=== PATIENT | male | born 1995 | race Caucasian/White ===

== ENCOUNTER 2023-10-25 01:50 | Emergency (ER) | payer SELFPAY ==
[~2023-10-25] VITALS: Ht 162.6 cm; Wt 65.8 kg
[2023-10-25 01:53] VITALS: BP 120/85; PULSE 79; RESP 14; TEMP 97.5; O2SAT 99
[2023-10-25 02:16] VITALS: BP 120/85; PULSE 79; RESP 14; TEMP 97.5; O2SAT 99
== END 2023-10-25 02:16 ==
LOC: MED 01:50
DX: Z02.89 Encounter for other administrative examinations (principal); V43.52XA Car driver injured in collision with other type car in traffic accident, initial encounter; Y93.89 Activity, other specified; Y92.89 Other specified places as the place of occurrence of the external cause; Y99.8 Other external cause status
CPT/HCPCS: 99283